=== PATIENT | female | born 1995 | race African-American/Black ===

== ENCOUNTER 2017-08-19 17:23 | Emergency (ER) | payer OTHER ==
[~2017-08-19] VITALS: Ht 157.5 cm; Wt 80.1 kg
[~2017-08-19 17:23] MED LIST: HYDROCORTISONE30 G2 TP; PRENATAL TABLE1 EAC3 PO
[2017-08-19] MEDS ORDERED: MUCINEX D ER T1 EACH PO (21:31)
[2017-08-19] MEDS ORDERED: NAPROSYN500 MG PO (21:31)
[2017-08-19] MEDS ORDERED: FLONASE16 G1 BOTH NARES (21:31)
[2017-08-19] MEDS ORDERED: CEFDINIR300 MG PO (21:31)
[2017-08-19 22:24] VITALS: BP 140/76
== END 2017-08-19 22:29 | disposition home or self-care (01) ==
LOC: EME 17:23
DX: J01.90 Acute sinusitis, unspecified (principal); H10.31 Unspecified acute conjunctivitis, right eye; J45.909 Unspecified asthma, uncomplicated
CPT/HCPCS: 99281; 99284